=== PATIENT | male | born 1985 | race Hispanic/Latino ===

== ENCOUNTER 2025-03-04 14:47 | Emergency (ER) | payer OTHER ==
[2025-03-04 15:29] LABS: Absolute Eosinophils 0.2 K/uL (0-0.5); Absolute Lymphocytes (CBC) 1.7 K/uL (0.7-4.9); Absolute Monocytes 0.7 K/uL (0.1-1.3); Absolute Neutrophil 4.4 K/uL (1.8-8.0); Basophils % 0.7 % (0-1.3); Eosinophils % 2.9 % (0-4.4); Hematocrit 42.5 % (39.6-49.0); Hemoglobin 14.8 g/dL (13.6-17.9); Lymphocytes % 23.6 % (15.3-44.8); MCH 31.1 pg (27.0-35.0); MCHC 34.8 g/dL (32.0-36.0); MCV 89.5 fL (80-100); MPV 8.1 fL (7.6-11.3); Monocytes % 9.6 % (3.3-12.3); Neutrophils % 63.2 % (41.7-73.7); Nucleated Red Blood Cells % 0.1 % (0-0); Platelets 291 thou/uL (152-406); RBC Red Blood Cell Count 4.76 M/uL (4.33-5.43); Red Cell Distribution Width 13.5 % (12.1-15.2)
[2025-03-04 15:38] LABS: PT Prothrombin Time 11.6 SECONDS (10-13.0); PTT, Activated Partial Thromb 31.9 SECONDS (27.2-37.4); Protime INR 1.02
[2025-03-04 15:57] LABS: ALT/SGPT 40 U/L (16-61); AST/SGOT 22 U/L (15-37); Albumin/Globulin Ratio 1.1 (1.1-1.8); Alkaline Phosphatase 88 U/L (45-117); Anion Gap 10.6 mEq/L (5.0-15.0); BUN Blood Urea Nitrogen 10 mg/dL (7-18); Bicarbonate 21 mEq/L (21-32); Bilirubin Direct 0.2 mg/dL (0-0.2); Bilirubin Indirect, Calculated 0.4 mg/dL (0.2-0.8); Bilirubin Total 0.6 mg/dL (0.2-1.0); Globulin 3.5 g/dL (2.3-3.5); Glomerular Filtration Rate 114 ml/min (=/>90); Glucose Level 110 mg/dL (74-106); Potassium 3.6 mEq/L (3.5-5.1); Protein, Total 7.5 g/dL (6.4-8.2); Sodium Level 138 mEq/L (136-145)
--- NOTE | 2025-03-04 15:57 | EDPHYS ---
Physician Documentation [facility] Name: Arden Campos Age: 40 yrs Sex: Male : 1985 Arrival Date: 03/04/2025 Time: 14:47 Bed 4 Private MD: ED Physician Kolby Bernal HPI: 03/04 15:02 This 40 yrs old Male presents to ER via Unassigned with complaints of PAMELA. kb 15:20 Pt is a 40 year old male who presents for flashbacks/PTSD. Pt reports he has been kb having flashbacks from when he was in the war. Denies suicidal or homicidal ideations. States he called the crisis hotline because the flashbacks were getting worse and more frequent. . Historical: - PMHx: 15:22 Bipolar disorder; Schizophrenia; iw - Immunization history:: Adult Immunizations up to date. - Infectious Disease History:: Denies. - Social history:: Smoking status: unknown. ROS: 15:00 Constitutional: As per HPI kb Exam: 15:00 Constitutional: This is a well developed, well nourished patient who is awake, alert, kb and in no acute distress. Head/Face: Normocephalic, atraumatic. ENT: Moist Mucous membranes Cardiovascular: Regular rate Respiratory: Respirations even and unlabored. No increased work of breathing. Talking in full sentences Abdomen/GI: Soft, non-tender. No distention Skin: Warm, dry with normal turgor. Normal color. MS/ Extremity: Pulses equal, no cyanosis. Neurovascular intact. Full, normal range of motion. Neuro: Awake and alert, GCS 15, oriented to person, place, time, and situation. 15:00 Psych: Behavior/mood is cooperative, Affect is calm, Oriented to person, place, time, Patient has no thoughts/intents to harm self or others. Vital Signs: 15:03 BP 161 / 89; Pulse 61; Resp 16; Temp 97.8; Pulse Ox 98% on R/A; iw 16:58 BP 157 / 75; Pulse 79; Resp 16; Pulse Ox 99% ; bp MDM: 14:49 Medical Screening Exam initiated kb 15:01 Data reviewed: vital signs, nurses notes. kb 15:18 Differential diagnosis: acute stress reaction, hallucinations, PTSD, psychosis. kb Consideration of Admission/Observation Escalation of care including admission/observation considered. pt will be transferred for inpatient psych. Counseling: I had a detailed discussion with the patient and/or guardian regarding the historical points, exam findings, and any diagnostic results supporting the discharge/admit diagnosis, the need to transfer to another facility, [facility] does not immediately have the required specialist. ED course: Pt in agreement with transfer to inpatient psych. Will go to a facility on voluntary basis. 16:16 Management of patient was discussed with the following: Behavioral Health Provider: Pt kb accepted to [facility] by Dr Baldwin without conference. 03/04 14:54 Order name: Acetaminophen; Complete Time: 16:03 kb 03/04 14:54 Order name: Basic Metabolic Panel; Complete Time: 16:03 kb 03/04 14:54 Order name: CBC with Diff; Complete Time: 15:30 kb 03/04 14:54 Order name: ETOH Level; Complete Time: 15:57 kb 03/04 14:54 Order name: Hepatic Function; Complete Time: 16:03 kb 03/04 14:54 Order name: PT-INR; Complete Time: 15:39 kb 03/04 14:54 Order name: Ptt, Activated; Complete Time: 15:39 kb 03/04 14:54 Order name: Salicylate; Complete Time: 16:36 kb 03/04 14:54 Order name: Urine Drug Screen; Complete Time: 16:55 kb 03/04 14:54 Order name: IV Saline Lock; Complete Time: 15:31 kb 03/04 14:54 Order name: Labs collected and sent; Complete Time: 15:31 kb 03/04 14:54 Order name: Suicide Precautions; Complete Time: 16:12 kb 03/04 14:54 Order name: Suicide Screening ([place]); Complete Time: 16:12 kb Administered Medications: No medications were administered Disposition Summary: 03/04/25 15:57 Transfer Ordered Notes: Transfer Location: Psych Facility kb Reason: Higher level of care kb Condition: Stable kb Problem: an acute exacerbation kb Symptoms: are unchanged kb Accepting Physician: Dr Barakat(03/04/25 17:00) bp Diagnosis - Post-traumatic stress disorder (PTSD) kb Discharge Instructions: - Discharge Summary Sheet em1 Forms: - Medication Reconciliation Form em1 - SBAR form em1 Addendum: 03/05/2025 22:21 Co-signature as Attending Physician, Kolby Bernal MD I agree with the assessment and c causey plan of care. Signatures: Dispatcher [employer] EDTsering Morales, SURVEY TECHNICIAN-C SURVEY TECHNICIAN-Ckb Kolby Bernal MD MD cha Williams, Irene, RN RN iw Kaiden Clifford, RN RN bp Corrections: (The following items were deleted from the chart) 03/04 14:54 14:54 ACETAMINOPHEN+C.LAB.BRZ ordered. EDMS EDMS 14:54 14:54 BASIC METABOLIC PANEL+C.LAB.BRZ ordered. EDMS EDMS 14:54 14:54 CBC+H.LAB.BRZ ordered. EDMS EDMS 14:54 14:54 ETHANOL+C.LAB.BRZ ordered. EDMS EDMS 14:54 14:54 HEPATIC FUNCTION+C.LAB.BRZ ordered. EDMS EDMS 14:54 14:54 PROTIME (+INR)+COAG.LAB.BRZ ordered. EDMS EDMS 14:54 14:54 PTT, ACTIVATED+COAG.LAB.BRZ ordered. EDMS EDMS 14:54 14:54 SALICYLATE+C.LAB.BRZ ordered. EDMS EDMS 14:54 14:54 URINE DRUG SCREEN+UC.LAB.BRZ ordered. EDMS EDMS 16:16 15:57 Dr rivas kb 16:25 14:54 EKG - Nurse/Tech ordered. kb bp 17:00 16:16 Dr Barakat kb bp
--- NOTE | 2025-03-04 15:57 | ER ---
Nurse's Notes [facility] Name: Arden Campos Age: 40 yrs Sex: Male : 1985 Arrival Date: 03/04/2025 Time: 14:47 Bed 4 Private MD: Diagnosis: Post-traumatic stress disorder (PTSD) Presentation: 03/04 15:03 Chief complaint: Patient states: he called the crisis hotline because he needs to get iw his meds straightened out, he is having war flashbacks , denies SI or HI but he has black out spells. Coronavirus screen: At this time, the client does not indicate any symptoms associated with coronavirus-19. Ebola Screen: No symptoms or risks identified at this time. Initial Sepsis Screen: Does the patient meet any 2 criteria? No. Patient's initial sepsis screen is negative. Does the patient have a suspected source of infection? No. Patient's initial sepsis screen is negative. Risk Assessment: Do you want to hurt yourself or someone else?. Onset of symptoms was March 04, 2025. 15:03 Method Of Arrival: Ambulatory iw 15:03 Acuity: LITZY 2 iw Triage Assessment: 15:05 General: Appears distressed, Behavior is agitated, anxious. Pain: Denies pain. EENT: No bp deficits noted. Neuro: No deficits noted. Cardiovascular: No deficits noted. Respiratory: No deficits noted. GI: No signs and/or symptoms were reported involving the gastrointestinal system. : No signs and/or symptoms were reported regarding the genitourinary system. Derm: No deficits noted. Musculoskeletal: No deficits noted. Historical: - PMHx: 15:22 Bipolar disorder; Schizophrenia; iw - Immunization history:: Adult Immunizations up to date. - Infectious Disease History:: Denies. - Social history:: Smoking status: unknown. Screenin:58 [facility] ED Fall Risk Assessment (Adult) History of falling in the last 3 months, bp including since admission No falls in past 3 months (0 pts) Confusion or Disorientation No (0 pts) Intoxicated or Sedated No (0 pts) Impaired Gait No (0 pts) Mobility Assist Device Used No (0 pt) Altered Elimination No (0 pt) Score/Fall Risk Level 0 - 2 = Low Risk Oriented to surroundings. Abuse screen: Denies threats or abuse. Denies injuries from another. Nutritional screening: No deficits noted. Tuberculosis screening: No symptoms or risk factors identified. Assessment: 16:02 Reassessment: pt refused EKG. ERP notified. mb9 16:11 Reassessment: FRANK RN REPORT TO JAYLYN BLAND. bp 16:58 Reassessment: PT MARIELY WITH EMS. bp Vital Signs: 15:03 BP 161 / 89; Pulse 61; Resp 16; Temp 97.8; Pulse Ox 98% on R/A; iw 16:58 BP 157 / 75; Pulse 79; Resp 16; Pulse Ox 99% ; bp ED Course: 14:48 Patient arrived in ED. mr 14:49 Tesring Marques FNP-C [facility]. kb 14:49 Kolby Bernal MD is Attending Physician. kb 15:06 Triage completed. iw 15:22 Initial lab(s) drawn, by me, sent to lab. Inserted saline lock: 20 gauge in right hand, iw using aseptic technique. Blood collected. Flushed with 10 mL NS. 16:10 Kaiden Clifford, RN is Primary Nurse. bp 16:12 Arm band placed on. mb9 16:58 No provider procedures requiring assistance completed. Patient transferred, IV remains bp in place. 16:58 Patient has correct armband on for positive identification. bp Administered Medications: No medications were administered Medication: 16:58 VIS not applicable for this client. bp Outcome: 15:57 ER care complete, transfer ordered by . kb 16:58 Transferred by ground EMS bp 16:58 Condition: stable 16:58 Instructed on the need for transfer, 17:00 Patient left the ED. bp Signatures: Tsering Marques FNP-C FNP-Nancy Zuniga, Reg Reg Kati Ewing, RN SAL[place] iw Kaiden Clifford, Nancy Garcia RN, RN RN mb9
[2025-03-04 16:52] LABS: Barbiturates NEGATIVE (NEGATIVE); Benzodiazepines NEGATIVE (NEGATIVE); Cocaine NEGATIVE (NEGATIVE); METHAMPHETAM NEGATIVE (NEGATIVE); Methadone NEGATIVE (NEGATIVE); Opiates NEGATIVE (NEGATIVE); Phencyclidine NEGATIVE (NEGATIVE); THC Cannibis NEGATIVE (NEGATIVE)
[2025-03-04 17:56] VITALS: TEMP 97.8
[2025-03-04 17:59] VITALS: BP 157/75; O2SAT 99
== END 2025-03-04 17:00 ==
LOC: ER 14:47
DX: F43.10 Post-traumatic stress disorder, unspecified (principal); F20.9 Schizophrenia, unspecified
CPT/HCPCS: 36415; 80048; 80076; 80143; 80179; 80307; 82077; 85025; 85610; 85730; 99285